=== PATIENT | male | born 1960 | race Caucasian/White ===

== ENCOUNTER 2023-05-14 14:18 | Emergency (ER) | payer OTHER ==
[~2023-05-14] VITALS: Ht 177.8 cm; Wt 70.3 kg
[2023-05-14 14:37] VITALS: BP 165/91; PULSE 81; RESP 16; TEMP 97.8; O2SAT 97
[2023-05-14] MEDS: diphenhydrAMINE 50 MG/ML VIAL IVP ONE (15:14)
[2023-05-14] MEDS: FAMOTIDINE 20 MG/2 ML VIAL IVP ONE (15:15)
[2023-05-14] MEDS: methylPREDNISolone SS 125 MG/2 ML VIAL IVP ONE (15:16)
[2023-05-14] MEDS ORDERED: BEN50 PO (15:59)
[2023-05-14] MEDS ORDERED: AMLO10TA PO (15:59)
[2023-05-14] MEDS ORDERED: PRED20TA5 PO (15:59)
[2023-05-14 16:05] VITALS: BP 145/80; PULSE 78; RESP 13; TEMP 98; O2SAT 99
== END 2023-05-14 16:05 | disposition home or self-care (01) ==
LOC: MED 14:18
DX: T78.3XXA Angioneurotic edema, initial encounter (principal); Z79.899 Other long term (current) drug therapy
CPT/HCPCS: 96374; 96375; 99284; J1200; J2930; J3490